=== PATIENT | female | born 1975 | race Caucasian/White ===

== ENCOUNTER 2020-01-11 11:06 | Outpatient (CLI) | payer SELFPAY ==
--- NOTE | 2020-01-11 11:09 | US_ITS ---
WS: [id number] TRANSABDOMINAL PELVIC AND TRANSVAGINAL PELVIC ULTRASOUND HISTORY: MENORRHAGIA W/IRREGULAR CYCLE COMPARISON: None available. Uterus: 11.7 cm x 6.8 cm x 4.0 cm. Minimally enlarged uterus. Normal anteverted with no fibroid or ma ss. Endometrium: 0.8 cm. Normal endometrium. Right ovary: 4.8 cm x 4.4 cm x 3.1 cm. Normal size and echogenicity. Left ovary: 3.4 cm x 1.9 cm x 3.0 cm. Normal size and echogenicity. No free fluid in the cul-de-sac. US/US pelvic with transvaginal IMPRESSION: 1. Mild uterine enlargement. No fibroid. 2. Normal endometrium.
--- NOTE | 2020-01-11 12:16 | CT_ITS ---
WS: [id number] CT PELVIS WITH CONTRAST. HISTORY: PERINEAL CYST TECHNIQUE: Contiguous imaging is performed of the pelvis with contrast. Coronal and sagittal reformat s are reviewed. All CT scans at [facility] use at least one of these dose optimization te chniques: automated exposure control; mA and/or kV adjustment per patient size (includes targeted exa ms where dose is matched to clinical indication); or iterative reconstruction. DLP: 637.44 mGy.cm Contrast: Omnipaque 300; 95 mL IV. COMPARISON: None available. No free fluid or adenopathy in the pelvis. No GI tract obstruction. No diverticular disease. The appe ndix is identified and normal. Uterus is midline and minimally enlarged at 9.4 cm in length. Increase fluid along the endometrium measuring up to 8 mm. Bilateral tubal ligation. RIGHT ovarian follicles with the largest follicle measuring 2.4 cm. No enhancing mass along the perineum. There is a very tiny amount of thickening in the LEFT perineum which could be a small peroneal cyst measuring about 8 mm. No enhancement. There is no adjacent infla mmation. No bone abnormalities. CT/CT pelvis w con* [id number] IMPRESSION: 1. No peritoneal mass identified. There is very minimal thickening along the L EFT perineum which could potentially represent a very small cyst. No enhancing masses. 2. Normal appendix.
[2020-01-11] MEDS: iohexol 300 mg/mL 100 mL Btl IV (13:17)
[2020-01-11] MEDS: iohexol 300 mg/mL 50 mL Btl PO (13:17)
== END 2020-01-11 11:07 | disposition home or self-care (01) ==
LOC: US 11:07
PROVIDERS: PCP Physician Assistant Medical; Visit Provider Nurse Practitioner Family
DX: N92.1 Excessive and frequent menstruation with irregular cycle (principal)
CPT/HCPCS: 72193; 76830; 76856

== ENCOUNTER → 2021-03-05 08:42 | Outpatient (BNVA) | payer OTHER, SELFPAY | PROVIDERS: PCP Physician Assistant Medical; Referring Provider Physician Assistant Medical; Visit Provider Internal Medicine | DX: E04.1 Nontoxic single thyroid nodule (principal); E04.9 Nontoxic goiter, unspecified; F17.200 Nicotine dependence, unspecified, uncomplicated | CPT/HCPCS: 99204 ==

== ENCOUNTER 2021-03-31 07:25 | Outpatient (CLI) | payer OTHER, SELFPAY ==
--- NOTE | 2021-03-31 08:30 | US_ITS ---
WS: [id number] ULTRASOUND-GUIDED RIGHT THYROID NODULE FNA x2 HISTORY: 2 nodules in the RIGHT thyroid for which biopsy is requested. Procedure, risks, and complications were explained to the patient. Consent has been obtained. There are no prior studies for comparison. Ultrasound of the thyroid is clinically performed. There i s a spongiform nodule in the RIGHT mid gland measuring 2.2 x 1.7 x 1.5 cm. Sponge form nodules are be nign. There is an additional more solid nodule in the inferior pole measuring 1.5 x 1.2 x 0.6 cm. The skin is cleansed with ChloraPrep and anesthetized with 1% buffered lidocaine. FNA performed with 25 gauge needles. computer technologist is present to fix slides. Multiple fine-needle aspiratio ns are performed of each nodule in the RIGHT thyroid. US/US biopsy/FNA thyroid [id number] IMPRESSION: Uncomplicated FNA of RIGHT thyroid nodules. Final pathology results pending.
== END 2021-03-31 07:26 | disposition home or self-care (01) ==
LOC: RAD 07:34
PROVIDERS: PCP Physician Assistant Medical; Visit Provider Internal Medicine
DX: E04.1 Nontoxic single thyroid nodule (principal)
CPT/HCPCS: 10005; 10006; 88173; 88305

== ENCOUNTER 2021-10-01 09:38 | Outpatient (CLI) | payer OTHER, SELFPAY ==
--- NOTE | 2021-10-01 09:41 | MM_ITS ---
WS: [id number] BILATERAL SCREENING DIGITAL BREAST TOMOSYNTHESIS MAMMOGRAM WITH CAD HISTORY: SCREENING COMPARISON: 06/06/2020 and 08/27/2005 Bilateral CC and MLO views with tomosynthesis and synthetic mammography submitted. Computer aided det ection analyzed. Breast composition: There are scattered areas of fibroglandular density. No suspicious masses, microc alcifications or architectural distortion. MM/[place] [id number] IMPRESSION: BI-RADS: 1-Negative FOLLOW UP: 1 Year Follow-up
== END 2021-10-01 09:39 | disposition home or self-care (01) ==
PROVIDERS: PCP Physician Assistant Medical; Visit Provider Nurse Practitioner Family
DX: Z12.31 Encounter for screening mammogram for malignant neoplasm of breast (principal)
CPT/HCPCS: 77063; 77067

== ENCOUNTER 2022-01-20 16:23 | Outpatient (CLI) | payer OTHER, SELFPAY ==
--- NOTE | 2022-01-20 16:30 | US_ITS ---
WS: [id number] Thyroid ultrasound, 01/21/2022 Clinical Data: Goiter and nodules Comparison: Thyroid ultrasound, 03/31/2021 Findings: The right lobe of thyroid measures 6.2 cm x 2.6 cm x 2.4 cm. There is a midlobe nodule measuring 1.39 x 1.88 x 2.02 cm with mixed echotexture. There is a smaller nodule in the inferior aspect of the rig ht lobe measuring 0.82 x 1.14 x 1.45 cm The left lobe measures 5.0 cm x 2.3 cm x 1.7 cm. The left lobe shows uniform echotexture. The isthmus measured 0.3 mm. The echotexture of the thyroid is uniform separative the nodules in the right lobe. US/US thyroid [id number] Impression: No change in 2 right lobe nodules.
== END 2022-01-20 16:24 | disposition home or self-care (01) ==
PROVIDERS: PCP Nurse Practitioner Family; Visit Provider Internal Medicine
DX: E04.9 Nontoxic goiter, unspecified (principal); E04.1 Nontoxic single thyroid nodule
CPT/HCPCS: 76536

== ENCOUNTER → 2024-02-16 10:05 | Outpatient (BNVA) | payer OTHER, SELFPAY | PROVIDERS: PCP Nurse Practitioner Family; Visit Provider Internal Medicine | DX: E04.9 Nontoxic goiter, unspecified (principal); E04.1 Nontoxic single thyroid nodule | CPT/HCPCS: 84439; 84443 ==

== ENCOUNTER 2024-03-08 06:12 | Outpatient (CLI) | payer OTHER, SELFPAY ==
--- NOTE | 2024-03-08 06:15 | US_ITS ---
WS: [id number] THYROID ULTRASOUND HISTORY: Thyroid nodule COMPARISON: 01/20/2022 Right lobe: 3.3 cm x 3.1 cm x 6.1 cm (w x ap x l). Volume: 30.1 cm3. Enlarged RIGHT thyroid. Pseudo nodular pattern throughout the thyroid. There is a more focal spongifo rm nodule in the mid gland measuring 2.3 x 1.7 x 2.5 cm. No increased vascularity. There is an additi onal very vague nodule also within the mid gland measuring 1.3 x 1.3 x 1.6 cm. Both of these nodules were previously described and do not appear significantly changed. Left lobe: 2.2 cm x 1.9 cm x 5.9 cm (w x ap x l). Volume: 11.5 cm3. Mildly enlarged lobe. No mass or nodule. Isthmus: 0.4 cm. US/US thyroid [id number] IMPRESSION: 1. TI-RADS 2: Spongiform nodule mid RIGHT thyroid. No FNA necessary. By histor y this nodule has been previously biopsied. 2. Additional smaller nodule in the mid RIGHT gland is unchanged since 01/21/20 22. 3. Mild thyroid goiter. Slightly greater enlargement of the RIGHT thyroid.
== END 2024-03-08 06:13 | disposition home or self-care (01) ==
LOC: RAD 06:13
PROVIDERS: PCP Nurse Practitioner Family; Visit Provider Internal Medicine
DX: E04.9 Nontoxic goiter, unspecified (principal); E04.2 Nontoxic multinodular goiter
CPT/HCPCS: 76536